=== PATIENT | male | born 1965 | race Caucasian/White ===

== ENCOUNTER 2022-03-11 09:25 | Emergency (ER) | payer OTHER, SELFPAY ==
[2022-03-11 09:31] VITALS: BP 127/80; PULSE 90; RESP 16; TEMP 36.7; O2SAT 97; BMI 25.8
--- NOTE | 2022-03-11 09:39 | ED.WOUNDLAC ---
HPI - Wound/Laceration General Time Seen by Provider: 09:39 Date Seen: 03/11/22 Chief Complaint: Laceration/Wound Stated Complaint: Lac on scalp Time Seen by Provider: 03/11/22 09:37 Source: patient and RN notes reviewed Mode of arrival: ambulatory Limitations: no limitations History of Present Illness HPI narrative: Patient is ambulatory to the ED with a small scalp laceration it did bleed. 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 There was no loss of consciousness, he only sustained of scalp injury which did bleed. His tetanus is up-to-date in December of 2019. There are no other injuries, no other concerns. Related Data Allergies Allergy/AdvReac Type Severity Reaction Status Date / Time No Known Drug Allergies Allergy Verified 03/11/22 09:31 Review of Systems Narrative: As per HPI PFSH PFSH Social History Smoking Status: Current every day smoker What tobacco products do you use: cigarettes Do you use any of these nicotine containing products: None Second hand tobacco smoke exposure: No How often do you have a drink containing alcohol: 4 or more times a week How many standard drinks containing alcohol do you have on a typical day: 1 or 2 How often do you have six or more drinks on one occasion: Never AUDIT-C Alcohol total score: 4 Non-prescribed substance use: denies use Exam Const: Vital Signs, click to edit/add: Vital Signs - 24 hr 03/11/22 09:31 Temperature 98.1 F Pulse Rate [Pulse Oximeter] 90 Respiratory Rate 16 Blood Pressure [Ri ght Upper Arm] 127/80 Pulse Oximetry 97 Oxygen Delivery Me thod Room Air Documenting provider has reviewed patient's vital signs: yes Common normals: no apparent distress HENMT: Other: Scalp has a linear 1.5 cm laceration. It is mildly oozing. Wound was inspected, it is just into the subcutaneous tissue. I do believe it would benefit from closure implant to do so with orquidea. Course Vital Signs Vital signs: Initial Vital Signs Temperature 98.1 F 03/11/22 09:31 Temperature Source Temporal Artery Scan 03/11/22 09:31 Pulse Rate 90 03/11/22 09:31 Pulse Rhythm 03/11/22 09:31 Respiratory Rate 16 03/11/22 09:31 Blood Pressure 127/80 03/11/22 09:31 Blood Pressure Mean 95 03/11/22 09:31 Blood Pressure Position Supine 03/11/22 09:31 Pulse Oximetry 97 03/11/22 09:31 Oxygen Delivery Method 03/11/22 09:31 Vital Signs Temperature 98.1 F 03/11/22 09:31 Pulse Rate 90 03/11/22 09:31 Respiratory Rate 16 03/11/22 09:31 Blood Pressure 127/80 03/11/22 09:31 Pulse Oximetry 97 03/11/22 09:31 Oxygen Delivery Method 03/11/22 09:31 Temperature 98.1 F 03/11/22 09:31 Pulse Rate 90 03/11/22 09:31 Respiratory Rate 16 03/11/22 09:31 Blood Pressure 127/80 03/11/22 09:31 Pulse Oximetry 97 03/11/22 09:31 Oxygen Delivery Method 03/11/22 09:31 Critical Care Time Critical Care Time Critical Care Time: No Discharge Plan Discharge Clinical Impression: Laceration of scalp Qualifiers: Encounter type: initial encounter Qualified Code(s): S01.01XA - Laceration without foreign body of scalp, initial encounter Condition: Stable Instructions: Laceration (ED), Staple Care (ED) Additional Instructions: Need to schedule a clinic followup in 1 weeks time to assess the wound for staple removal. You may shower as usual but be careful to not disrupt the orquidea. May use Tylenol and/or ibuprofen per bottle directions if needed for any discomfort. If any concerns regarding this wound, feel that infection may be developing, please seek re-evaluation. Activity Level: Activity as Tolerated Stand Alone Forms: [facility] Info Instructions Procedures Laceration Laceration 1: Pre procedure diagnosis: Scalp laceration Post procedure diagnosis: Same Name of person performing procedure: Kayla Moffett Site: scalp Size (cm): 1.5 Description: linear Depth: simple, single layer Local Anesthetic: lidocaine 1% and with epi Amount of anesthesia used (mL): 3 Pre-repair: wound explored, irrigated extensively (Irrigation done by Nursing Staff) and deep structures intact Skin layer closed with: other ([place], 5 placed with good wound closure, no complications, patient tolerated well.) Wound cleansing: sterile water Estimated blood loss (if any): none
--- NOTE | 2022-03-11 09:54 | ED.NURSE ---
Pt head lac on top of head irrigated with ~150mLs sterile NS.
== END 2022-03-11 10:07 | disposition home or self-care (01) ==
LOC: ED 10:03
PROVIDERS: Emergency Provider Family Medicine
DX: S01.01XA Laceration without foreign body of scalp, initial encounter (principal)
CPT/HCPCS: 12001; 99283